=== PATIENT | female | born 1990 | race Caucasian/White ===

== ENCOUNTER 2018-04-14 08:22 | Day surgery (SDC) | payer OTHER ==
[2018-04-14] MEDS: SOD CHLORIDE 0.9% 1,000 ML IV (11:25)
[2018-04-14] MEDS ORDERED: FENTAnyl 50 MCG/ML VIAL (11:26)
[2018-04-14] MEDS ORDERED: PROPOFOL 20 ML ×2 (11:26→12:00)
[2018-04-14] MEDS ORDERED: MIDAZOLAM 1 MG/ML 2 ML INJ (11:26)
[2018-04-14] MEDS: LIDOCAINE 1% (MDV) 10 ML INJ ×2 (12:20)
[2018-04-14] MEDS ORDERED: ONDANSETRON 4 MG INJ IV (13:30)
[2018-04-14] MEDS ORDERED: PROCHLORPERAZINE 10 MG INJ IV (13:30)
[2018-04-14] MEDS ORDERED: OXYCODONE/ACETAMINOPHEN (5/325) TAB PO (13:30)
[2018-04-14] MEDS ORDERED: FENTAnyl 50 MCG/ML VIAL IV (13:30)
[2018-04-14] MEDS ORDERED: HYDROmorphONE 1 MG/5 ML IV SYRINGE IV ×3 (13:30)
[2018-04-14] MEDS ORDERED: DIPHENHYDRAMINE 50 MG INJ IV (13:30)
[2018-04-14] MEDS ORDERED: MEPERIDINE 25 MG INJ IV (13:30)
== END 2018-04-14 15:00 | disposition home or self-care (01) ==
LOC: SDS 08:22
DX: K76.89 Other specified diseases of liver (principal); Z85.41 Personal history of malignant neoplasm of cervix uteri; F79 Unspecified intellectual disabilities; G80.9 Cerebral palsy, unspecified
CPT/HCPCS: 47000; 77012; 88307; 88313